=== PATIENT | female | born 1990 | race Caucasian/White ===

== ENCOUNTER 2017-02-11 07:06 | Emergency (ER) | payer OTHER ==
[~2017-02-11] VITALS: Ht 152.4 cm; Wt 42.0 kg
[~2017-02-11 07:06] MED LIST: ADVAIR 250/501 DISK IH; ALBUTEROL2.5 MG/3 M IH; MONTELUKAST SOD10 MG PO; PREDNISONE20 MG PO; PROAIR HFA8.5 GM IH; VENTOLIN HFA18 GM IH
[2017-02-11 07:25] VITALS: BP 108/67
[2017-02-11] MEDS ORDERED: VENTOLIN HFA18 GM IH (08:54)
== END 2017-02-11 09:38 | disposition home or self-care (01) ==
LOC: EME 07:06
DX: J45.901 Unspecified asthma with (acute) exacerbation (principal); Z88.0 Allergy status to penicillin
CPT/HCPCS: 94644; 99281; 99285; J1100; J3475